=== PATIENT | male | born 1985 | race African-American/Black ===

== ENCOUNTER → 2019-03-12 06:50 | Outpatient (CLI) | payer OTHER, SELFPAY ==
--- NOTE | 2019-03-12 | DI.ECHO.S_ITS ---
[place] [facility]---------+ [facility] +---------+ : : [address] : [address] : : : : [id number] : : : : Phone: [phone]+ Echocardiogram Report + + :Name: CRISTINO REYNOSO Study Date: 03/12/2019 Height: 70 in : :[facility] Weight: 202 lb : : Gender: Male BSA: 2.1 m2 : :: 1985 Age: 33 yrs BP: 122/74 mmHg: :Reason For Study: Dyspnea : : Performed By: Melanie Medina : :Referring: PERCY CAMEJO : + + Interpretation Summary The left ventricle is normal in size. Left ventricular systolic function is normal without focal wall motion abnormalities. The ejection fraction is estimated to be 55-60%. Diastolic parameters suggest probable normal left ventricular diastolic function and normal filling pressures. The right ventricle is borderline dilated. The right ventricular systolic function is normal. The right ventricular systolic pressure is estimated to be at least 25 mmHg based on an estimated right atrial pressure of 3 mm Hg. The left atrial size is normal. Right atrial size is normal. There is no significant valvular heart disease. The aortic root is normal size. Procedure: A two-dimensional transthoracic echocardiogram with color flow and Doppler was performed. The study quality was technically good. There is no prior echocardiogram noted for this patient. The patient was in normal sinus rhythm during the exam. Left Ventricle: The left ventricle is normal in size. Left ventricular wall thickness is mildly increased. Left ventricular systolic function is normal without focal wall motion abnormalities. The ejection fraction is estimated to be 55-60%. Diastolic parameters suggest probable normal left ventricular diastolic function and normal filling pressures. Right Ventricle: The right ventricle is borderline dilated. The right ventricular systolic function is normal. Atria: The left atrial size is normal. Right atrial size is normal. The interatrial septum is intact with no evidence for an atrial septal defect. Mitral Valve: The mitral valve is normal in structure and function. There is trace mitral regurgitation. Aortic Valve: The aortic valve is trileaflet. The aortic valve opens well. No aortic regurgitation is present. Tricuspid Valve: The tricuspid valve is normal in structure and function. There is trace tricuspid regurgitation. The right ventricular systolic pressure is estimated to be at least 25 mmHg based on an estimated right atrial pressure of 3 mm Hg. Pulmonic Valve: The pulmonic valve is normal in structure and function. There is no pulmonic valvular regurgitation. There is no significant valvular heart disease. Great Vessels: The aortic root is normal size. The dimensions of the ascending aorta are normal. The aortic arch is normal in size. The IVC is of normal diameter and collapses greater than 50% with a sniff. This suggests a low right atrial pressure of 3 mm Hg. Pericardium/ Pleura There is no pericardial effusion. There is no pleural effusion. MMode/2D Measurements & Calculations LVIDd: 5.3 cm Ao root diam: 3.6 cm LVIDs: 3.7 cm Aortic Jxn: 2.7 cm FS: 30.3 % asc Aorta Diam: 3.1 cm IVSd: 1.2 cm Ao Arch Diam (Prox Trans): 2.8 cm LVPWd: 0.86 cm LV freitas. diameter/BSA (cm/m^2): 2.5 LV sys. diameter/BSA (cm/m^2): 1.8 LA dimension: 3.3 cm RA long axis: 5.2 cm LA A2 area: 18.5 cm2 RA area: 20.4 cm2 LA A4 area: 18.9 cm2 RA vol: 68.1 ml LA length (vol): 5.4 cm RA : 32.5 ml/m2 LA vol: 55.4 ml IVC diam: 1.5 cm LA vol index: 26.4 ml/m2 RVDd major: 6.4 cm RVD1 (basal): 4.6 cm RVD2 (mid): 3.6 cm Doppler Measurements & Calculations Ao V2 max: 119.4 cm/sec MV E max warren: 69.6 cm/sec Ao V2 mean: 83.3 cm/sec MV A max warren: 36.2 cm/sec Ao max P.7 mmHg MV E/A: 1.9 Ao mean P.2 mmHg Med Peak E' Warren: 8.9 cm/sec Ao V2 VTI: 28.2 cm E/E' med: 7.8 Lat Peak E' Warren: 12.9 cm/sec E/E' lat: 5.4 E/e' average: 6.6 MV dec time: 0.29 sec MV P1/2t: 88.4 msec TR max warren: 234.9 cm/sec MV P1/2t max warren: 71.0 cm/sec TR max P.1 mmHg MVA(P1/2t): 2.5 cm2 PA V2 max: 86.5 cm/sec PA V2 mean: 55.9 cm/sec PA mean P.5 mmHg PA Accel Time: 0.14 sec Reading Physician:03:05 PM
== END ==
PROVIDERS: Visit Provider Internal Medicine Cardiovascular Disease
DX: R06.00 Dyspnea, unspecified (principal)
CPT/HCPCS: 93306